=== PATIENT | male | born 1990 | race Caucasian/White ===

== ENCOUNTER 2018-12-27 19:32 | Emergency (ER) | payer OTHER ==
[2018-12-27 20:46] LABS: Absolute Lymphocytes (CBC) 1.2 K/uL (0.7-4.9); Absolute Monocytes 0.6 K/uL (0.1-1.3); Absolute Neutrophil 5.6 K/uL (1.8-8.0); Basophils % 0.5 % (0-1.3); Eosinophils % 0.3 % (0-4.4); Hematocrit 43.5 % (39.6-49.0); Lymphocytes % 16.3 % (15.3-44.8); MPV 7.9 fL (7.6-11.3); Monocytes % 7.6 % (3.3-12.3); RBC Red Blood Cell Count 4.76 M/uL (4.33-5.43)
--- NOTE | 2018-12-27 21:06 | RAD REPORT ---
EXAM DESCRIPTION: US - Scrotum Testicles - 12/27/2018 8:28 pm CLINICAL HISTORY: Testicular pain COMPARISON: None. FINDINGS: Testicles are homogeneous with normal Doppler blood flow pattern. No focal mass or testicu lar abnormality seen. Each epididymis is normal in appearance. There is a 6 millimeter right epididym al cyst as an incidental finding. No suspicious extra testicular abnormality. IMPRESSION: Scrotal ultrasound shows no significant or suspicious finding.
[2018-12-27 21:12] LABS: Albumin 4.5 g/dL (3.4-5.0); Bilirubin Direct 0.2 mg/dL (0-0.2); Bilirubin Total 0.6 mg/dL (0.2-1.0); Potassium 3.8 mmol/L (3.5-5.1); Protein, Total 8.2 g/dL (6.4-8.2)
--- NOTE | 2018-12-27 21:54 | ER ---
Nurse's Notes [facility] Name: Pavan Seth Age: 28 yrs Sex: Male : 1990 Arrival Date: 12/27/2018 Time: 19:36 Bed 5 Private MD: Diagnosis: Testicular Pain Presentation: 12/27 19:57 Presenting complaint: Patient states: Sudden onset of testicular pain to left but is lp1 now in the right at 1845; Pain when walking, patient states some swelling. Transition of care: patient was not received from another setting of care. Onset of symptoms was December 27, 2018 at 18:45. Risk Assessment: Do you want to hurt yourself or someone else? Patient reports no desire to harm self or others. Initial Sepsis Screen: Does the patient meet any 2 criteria? No. Patient's initial sepsis screen is negative. Does the patient have a suspected source of infection? No. Patient's initial sepsis screen is negative. Care prior to arrival: None. 19:57 Method Of Arrival: Ambulatory lp1 19:57 Acuity: WADE 3 lp1 Historical: - Allergies: 19:59 No Known Allergies; lp1 - Home Meds: 19:59 None [Active]; lp1 - PMHx: 19:59 None; lp1 - PSHx: 19:59 None; lp1 - Immunization history:: Adult Immunizations up to date. - Social history:: Smoking status: Patient/guardian denies using tobacco. - Ebola Screening: : No symptoms or risks identified at this time. Screenin:45 Abuse screen: Denies threats or abuse. Nutritional screening: No deficits noted. jd3 Tuberculosis screening: No symptoms or risk factors identified. Fall Risk Ambulatory Aid- None/Bed Rest/Nurse Assist (0 pts). Gait- Normal/Bed Rest/Wheelchair (0 pts) Mental Status- Oriented to own ability (0 pts). Total Aranda Fall Scale indicates No Risk (0-24 pts). Assessment: 20:39 General: Appears in no apparent distress. uncomfortable, Behavior is cooperative, jd3 appropriate for age, anxious. Pain: Complains of pain in groin Pain currently is 2 out of 10 on a pain scale. Quality of pain is described as sharp. Neuro: Level of Consciousness is awake, alert, obeys commands, Oriented to person, place, time, situation, Appropriate for age. Cardiovascular: Denies chest pain, Capillary refill < 3 seconds Patient's skin is warm and dry. Respiratory: Airway is patent Respiratory effort is even, unlabored, Respiratory pattern is regular, symmetrical, Denies shortness of breath. GI: Abdomen is flat, non-distended, Patient currently denies abdominal pain, nausea, vomiting. : Denies burning with urination, inability to void. EENT: No signs and/or symptoms were reported regarding the EENT system. Derm: Skin is intact, Skin is dry, Skin is normal, Skin temperature is warm. Musculoskeletal: Circulation, motion, and sensation intact. Range of motion: intact in all extremities. 21:18 Reassessment: Patient appears in no apparent distress at this time. No changes from jd3 previously documented assessment. Patient and/or family updated on plan of care and expected duration. Pain level reassessed. Patient is alert, oriented x 3, equal unlabored respirations, skin warm/dry/pink. 22:03 Reassessment: Patient appears in no apparent distress at this time. Patient and/or jd3 family updated on plan of care and expected duration. Pain level reassessed. Patient is alert, oriented x 3, equal unlabored respirations, skin warm/dry/pink. Patient states feeling better. Vital Signs: 19:59 BP 138 / 95; Pulse 122; Resp 18; Temp 98(O); Pulse Ox 97% on R/A; Weight 61.23 kg; lp1 Height 5 ft. 11 in. (180.34 cm); Pain 8/10; 22:03 BP 127 / 87; Pulse 98; Resp 16 S; Pulse Ox 100% on R/A; jd3 19:59 Body Mass Index 18.83 (61.23 kg, 180.34 cm) lp1 ED Course: 19:36 Patient arrived in ED. ss4 19:59 Triage completed. lp1 19:59 Arm band placed on right wrist. lp1 20:09 Raoul Campuzano PA is PHCP. jr8 20:09 Kyaw Casillas MD is Attending Physician. jr8 20:16 Gene Alberts RN is Primary Nurse. jd3 20:28 US Scrotum Testicles In Process Unspecified. EDMS 20:28 Ultrasound completed. Patient tolerated well. cy 20:39 Inserted saline lock: 20 gauge in right antecubital area, using aseptic technique. jd3 Blood collected. 20:45 Patient has correct armband on for positive identification. Placed in gown. Bed in low jd3 position. Call light in reach. Side rails up X 1. Adult w/ patient. 22:04 No provider procedures requiring assistance completed. IV discontinued, intact, jd3 bleeding controlled, No redness/swelling at site. Pressure dressing applied. Administered Medications: No medications were administered Outcome: 21:53 Discharge ordered by . chong 22:04 Discharged to home ambulatory, with family. jd3 22:04 Condition: stable 22:04 Discharge instructions given to patient, family, Instructed on discharge instructions, follow up and referral plans. Demonstrated understanding of instructions, follow-up care. 22:05 Patient left the ED. jd3 Signatures: Dispatcher [employer] EDCorinne Zheng RN RN lp1 Raoul Campuzano PA PA jr8 Gene Alberts RN RN jd3 Xander Griffin Stephanie 4 Corrections: (The following items were deleted from the chart) 21:18 20:39 Pain: Complains of pain in groin Quality of pain is described as sharp, jd3 jd3
--- NOTE | 2018-12-27 21:54 | EDPHYS ---
Physician Documentation [facility] Name: Pavan Seth Age: 28 yrs Sex: Male : 1990 Arrival Date: 12/27/2018 Time: 19:36 Bed 5 Private MD: ED Physician Kyaw Casillas HPI: 12/27 21:17 This 28 yrs old Male presents to ER via Ambulatory with complaints of jr8 Testicular Pain. 21:17 The patient presents with scrotal pain, of both sides, tenderness, that is moderate. jr8 Onset: The symptoms/episode began/occurred acutely, today. Modifying factors: The symptoms are alleviated by nothing, the symptoms are aggravated by nothing. Associated signs and symptoms: The patient has no apparent associated signs or symptoms. Severity of symptoms: At their worst the symptoms were moderate, in the emergency department the symptoms have improved, markedly. The patient has not experienced similar symptoms in the past. The patient has not recently seen a physician. Patient stated that he was standing up talking to his girlfriend when he felt a twisting motion to his testicles. Stated that the pain became so severe he had to sit down. Started to relieve after a few minutes but pain continued to come and go. Came to ED at that time for further evaluation . Historical: - Allergies: 19:59 No Known Allergies; lp1 - Home Meds: 19:59 None [Active]; lp1 - PMHx: 19:59 None; lp1 - PSHx: 19:59 None; lp1 - Immunization history:: Adult Immunizations up to date. - Social history:: Smoking status: Patient/guardian denies using tobacco. - Ebola Screening: : No symptoms or risks identified at this time. ROS: 21:17 Eyes: Negative for injury, pain, redness, and discharge, ENT: Negative for injury, jr8 pain, and discharge, Neck: Negative for injury, pain, and swelling, Cardiovascular: Negative for chest pain, palpitations, and edema, Respiratory: Negative for shortness of breath, cough, wheezing, and pleuritic chest pain, Abdomen/GI: Negative for abdominal pain, nausea, vomiting, diarrhea, and constipation, Back: Negative for injury and pain, MS/Extremity: Negative for injury and deformity, Skin: Negative for injury, rash, and discoloration, Neuro: Negative for headache, weakness, numbness, tingling, and seizure. 21:17 : Positive for testicular pain Exam: 21:17 Eyes: Pupils equal round and reactive to light, extra-ocular motions intact. Lids and jr8 lashes normal. Conjunctiva and sclera are non-icteric and not injected. Cornea within normal limits. Periorbital areas with no swelling, redness, or edema. ENT: Nares patent. No nasal discharge, no septal abnormalities noted. Tympanic membranes are normal and external auditory canals are clear. Oropharynx with no redness, swelling, or masses, exudates, or evidence of obstruction, uvula midline. Mucous membranes moist. Neck: Trachea midline, no thyromegaly or masses palpated, and no cervical lymphadenopathy. Supple, full range of motion without nuchal rigidity, or vertebral point tenderness. No Meningismus. Cardiovascular: Regular rate and rhythm with a normal S1 and S2. No gallops, murmurs, or rubs. Normal PMI, no JVD. No pulse deficits. Respiratory: Lungs have equal breath sounds bilaterally, clear to auscultation and percussion. No rales, rhonchi or wheezes noted. No increased work of breathing, no retractions or nasal flaring. Abdomen/GI: Soft, non-tender, with normal bowel sounds. No distension or tympany. No guarding or rebound. No evidence of tenderness throughout. Back: No spinal tenderness. No costovertebral tenderness. Full range of motion. Skin: Warm, dry with normal turgor. Normal color with no rashes, no lesions, and no evidence of cellulitis. MS/ Extremity: Pulses equal, no cyanosis. Neurovascular intact. Full, normal range of motion. Neuro: Awake and alert, GCS 15, oriented to person, place, time, and situation. Cranial nerves II-XII grossly intact. Motor strength 5/5 in all extremities. Sensory grossly intact. Cerebellar exam normal. Normal gait. 21:17 : Male external genitalia: Circumcision noted. swelling: is not appreciated, tenderness, of the left testicle and right testicle is noted, that is mild, No external trauma, bruising, swelling, or erythema noted . Vital Signs: 19:59 BP 138 / 95; Pulse 122; Resp 18; Temp 98(O); Pulse Ox 97% on R/A; Weight 61.23 kg; lp1 Height 5 ft. 11 in. (180.34 cm); Pain 8/10; 22:03 BP 127 / 87; Pulse 98; Resp 16 S; Pulse Ox 100% on R/A; jd3 19:59 Body Mass Index 18.83 (61.23 kg, 180.34 cm) lp1 MDM: 20:09 Patient medically screened. jr8 21:51 Data reviewed: vital signs, nurses notes, lab test result(s), radiologic studies, jr8 ultrasound. Data interpreted: Pulse oximetry: on room air is 97 %. Interpretation: normal. Counseling: I had a detailed discussion with the patient and/or guardian regarding: the historical points, exam findings, and any diagnostic results supporting the discharge/admit diagnosis, lab results, radiology results, the need for outpatient follow up, a family practitioner, to return to the emergency department if symptoms worsen or persist or if there are any questions or concerns that arise at home. ED course: Patients pain resolved. No acute abnormality on labs or US. Will d/c home with return precautions and no strenuous activity for next 48 hours . 12/27 20:24 Order name: Basic Metabolic Panel; Complete Time: 21:34 jr8 12/27 20:24 Order name: CBC with Diff; Complete Time: 21:34 8 12/27 20:04 Order name: US Scrotum Testicles; Complete Time: 21:34 [facility] 12/27 20:24 Order name: Creatinine for Radiology; Complete Time: 21:34 jr8 12/27 20:24 Order name: Hepatic Function; Complete Time: 21:34 8 12/27 20:24 Order name: Lipase; Complete Time: 21:34 8 12/27 20:24 Order name: IV Saline Lock; Complete Time: 20:38 jr8 12/27 20:24 Order name: Labs collected and sent; Complete Time: 20:38 jr8 Administered Medications: No medications were administered Disposition: 12/27/18 21:53 Discharged to Home. Impression: Testicular Pain . - Condition is Stable. - Discharge Instructions: Testicular Torsion. - Medication Reconciliation Form, Thank You Letter, Antibiotic Education, Prescription Opioid Use form. - Follow up: Private Physician; When: 2 - 3 days; Reason: Recheck today's complaints, Continuance of care, Re-evaluation by your physician. - Problem is new. - Symptoms have improved. Signatures: Dispatcher [employer] EDCorinne Zheng RN RN lp1 Raoul Campuzano PA PA jr8 Gene Alberts RN RN jd3 Corrections: (The following items were deleted from the chart) 22:05 21:53 12/27/2018 21:53 Discharged to Home. Impression: Testicular Pain . Condition is jd3 Stable. Forms are Medication Reconciliation Form, Thank You Letter, Antibiotic Education, Prescription Opioid Use. Follow up: Private Physician; When: 2 - 3 days; Reason: Recheck today's complaints, Continuance of care, Re-evaluation by your physician. Problem is new. Symptoms have improved. jr8
== END 2018-12-27 22:05 | disposition home or self-care (01) ==
LOC: ER 19:32
DX: N50.812 Left testicular pain (principal); N50.811 Right testicular pain
CPT/HCPCS: 36415; 76870; 80048; 80076; 83690; 85025; 99283

== ENCOUNTER 2019-01-05 09:43 | Emergency (ER) | payer OTHER ==
--- NOTE | 2019-01-05 11:42 | RAD REPORT ---
EXAM DESCRIPTION: RAD - Foot Left 3 View - 01/05/2019 11:31 am CLINICAL HISTORY: Left foot pain, trauma fourth toe COMPARISON: None. FINDINGS: No fracture, dislocation or periosteal reaction. No acute or destructive bony process. No air or foreign body in the soft tissues. IMPRESSION: Negative left foot examination.
--- NOTE | 2019-01-05 11:46 | EDPHYS ---
Physician Documentation [facility] Name: Pavan Seth Age: 28 yrs Sex: Male : 1990 Arrival Date: 01/05/2019 Time: 09:44 Bed 12 Private MD: ED Physician Andrea Mayo HPI: 01/05 10:21 This 28 yrs old Male presents to ER via Ambulatory with complaints of Toe kb Injury. 10:21 The patient presents with a contusion, an injury, pain, that is acute, swelling, kb tenderness. The complaints affect the left fourth toe. Context: The problem was sustained at home, resulted from the patient kicking, furniture, the patient can fully bear weight, the patient is able to ambulate. Onset: The symptoms/episode began/occurred yesterday. Modifying factors: The symptoms are alleviated by nothing, the symptoms are aggravated by weight bearing. Associated signs and symptoms: Pertinent positives: swelling, Pertinent negatives: calf tenderness, fever, nausea, numbness, rash, tingling, vomiting, warmth, weakness. Severity of symptoms: At their worst the symptoms were moderate, in the emergency department the symptoms are unchanged. The patient has not experienced similar symptoms in the past. The patient has not recently seen a physician. Historical: - Allergies: 10:02 No Known Allergies; la1 - PMHx: 10:02 None; la1 - Immunization history:: Adult Immunizations up to date. - Social history:: Smoking status: Patient/guardian denies using tobacco. - Ebola Screening: : No symptoms or risks identified at this time. ROS: 10:20 Constitutional: Negative for fever, chills, and weight loss, Cardiovascular: Negative kb for chest pain, palpitations, and edema, Respiratory: Negative for shortness of breath, cough, wheezing, and pleuritic chest pain, Abdomen/GI: Negative for abdominal pain, nausea, vomiting, diarrhea, and constipation, Back: Negative for injury and pain, : Negative for injury, bleeding, discharge, and swelling, Neuro: Negative for headache, weakness, numbness, tingling, and seizure. 10:20 MS/extremity: Positive for injury or acute deformity, contusion, ecchymosis, pain, swelling, tenderness, of the left fourth toe. Exam: 09:54 Constitutional: This is a well developed, well nourished patient who is awake, alert, kb and in no acute distress. Head/Face: Normocephalic, atraumatic. Neck: Trachea midline, no thyromegaly or masses palpated, and no cervical lymphadenopathy. Supple, full range of motion without nuchal rigidity, or vertebral point tenderness. No Meningismus. Chest/axilla: Normal chest wall appearance and motion. Nontender with no deformity. No lesions are appreciated. Cardiovascular: Regular rate and rhythm with a normal S1 and S2. No gallops, murmurs, or rubs. Normal PMI, no JVD. No pulse deficits. Respiratory: Lungs have equal breath sounds bilaterally, clear to auscultation and percussion. No rales, rhonchi or wheezes noted. No increased work of breathing, no retractions or nasal flaring. Abdomen/GI: Soft, non-tender, with normal bowel sounds. No distension or tympany. No guarding or rebound. No evidence of tenderness throughout. Neuro: Awake and alert, GCS 15, oriented to person, place, time, and situation. Cranial nerves II-XII grossly intact. Motor strength 5/5 in all extremities. Sensory grossly intact. Cerebellar exam normal. Normal gait. 09:54 Musculoskeletal/extremity: Extremities: grossly normal except: noted in the left fourth toe: contusion, ecchymosis, pain, ROM: limited active range of motion due to pain, in the left foot, Circulation is intact in all extremities. Sensation intact. Vital Signs: 10:02 BP 144 / 91; Pulse 79; Resp 18; Temp 98.0; Pulse Ox 98% on R/A; Weight 63.5 kg; Height la1 5 ft. 11 in. (180.34 cm); 10:02 Body Mass Index 19.53 (63.50 kg, 180.34 cm) la1 MDM: 09:53 Patient medically screened. kb 10:20 Data reviewed: vital signs, nurses notes. Data interpreted: Pulse oximetry: on room air kb is 98 %. Interpretation: normal. 11:44 Counseling: I had a detailed discussion with the patient and/or guardian regarding: the kb historical points, exam findings, and any diagnostic results supporting the discharge/admit diagnosis, radiology results, the need for outpatient follow up, a family practitioner, to return to the emergency department if symptoms worsen or persist or if there are any questions or concerns that arise at home. 01/05 09:54 Order name: Foot Left 3 View XRAY; Complete Time: 11:43 kb Administered Medications: No medications were administered Disposition: 01/05/19 11:45 Discharged to Home. Impression: Contusion of left lesser toe(s) without damage to nail. - Condition is Stable. - Discharge Instructions: Foot Contusion, [id number]. - Prescriptions for Bactrim DS 800- 160 mg Oral Tablet - take 1 tablet by ORAL route every 12 hours for 7 days; 14 tablet. - Medication Reconciliation Form, Thank You Letter, Antibiotic Education, Prescription Opioid Use form. - Follow up: Emergency Department; When: As needed; Reason: Worsening of condition. Follow up: Private Physician; When: 2 - 3 days; Reason: Recheck today's complaints, Continuance of care, Re-evaluation by your physician. Addendum: 01/07/2019 07:35 Co-signature as Attending Physician, Andrea Mayo MD I agree with the assessment and c dee plan of care. Signatures: Dispatcher [employer] EDPatience Redman, TRANSCRIPT CLERK-C TRANSCRIPT CLERK-CkAndrea Draper MD MD cha Attema, Lee RN RN la1 Lenora Rutherford RN RN hb Corrections: (The following items were deleted from the chart) 01/05 10:20 09:54 Musculoskeletal/extremity: Extremities: grossly normal except: noted in the Left kb fourth toenail: contusion, ecchymosis, pain, ROM: limited active range of motion due to pain, in the left foot, Circulation is intact in all extremities. Sensation intact. kb 12:02 11:45 01/05/2019 11:45 Discharged to Home. Impression: Contusion of left lesser toe(s) hb without damage to nail. Condition is Stable. Forms are Medication Reconciliation Form, Thank You Letter, Antibiotic Education, Prescription Opioid Use. Follow up: Emergency Department; When: As needed; Reason: Worsening of condition. Follow up: Private Physician; When: 2 - 3 days; Reason: Recheck today's complaints, Continuance of care, Re-evaluation by your physician. kb
--- NOTE | 2019-01-05 11:46 | ER ---
Nurse's Notes [facility] Name: Pavan Seth Age: 28 yrs Sex: Male : 1990 Arrival Date: 01/05/2019 Time: 09:44 Bed 12 Private MD: Diagnosis: Contusion of left lesser toe(s) without damage to nail Presentation: 01/05 10:02 Presenting complaint: Patient states: Stubbed Left forth toe on dresser yesterday. la1 Transition of care: patient was not received from another setting of care. Onset of symptoms was January 05, 2019. Risk Assessment: Do you want to hurt yourself or someone else? Patient reports no desire to harm self or others. Initial Sepsis Screen: Does the patient meet any 2 criteria? No. Patient's initial sepsis screen is negative. Does the patient have a suspected source of infection? No. Patient's initial sepsis screen is negative. Care prior to arrival: None. 10:02 Method Of Arrival: Ambulatory la1 10:02 Acuity: WADE 4 la1 Historical: - Allergies: 10:02 No Known Allergies; la1 - PMHx: 10:02 None; la1 - Immunization history:: Adult Immunizations up to date. - Social history:: Smoking status: Patient/guardian denies using tobacco. - Ebola Screening: : No symptoms or risks identified at this time. Screenin:07 Abuse screen: Denies threats or abuse. Denies injuries from another. Nutritional hb screening: No deficits noted. Tuberculosis screening: No symptoms or risk factors identified. Fall Risk None identified. Assessment: 11:00 General: Appears in no apparent distress. Behavior is calm, cooperative. Pain: Pain hb currently is 2 out of 10 on a pain scale. Neuro: Level of Consciousness is awake, alert, obeys commands, Oriented to person, place, time, situation. Cardiovascular: Capillary refill < 3 seconds Patient's skin is warm and dry. Respiratory: Airway is patent Respiratory effort is even, unlabored, Respiratory pattern is regular, symmetrical. GI: No signs and/or symptoms were reported involving the gastrointestinal system. : No signs and/or symptoms were reported regarding the genitourinary system. EENT: No signs and/or symptoms were reported regarding the EENT system. Derm: Skin is intact, is healthy with good turgor. Musculoskeletal: Reports left 4th toe pain. 11:45 Reassessment: Patient appears in no apparent distress at this time. Patient and/or hb family updated on plan of care and expected duration. Pain level reassessed. Patient is alert, oriented x 3, equal unlabored respirations, skin warm/dry/pink. Vital Signs: 10:02 BP 144 / 91; Pulse 79; Resp 18; Temp 98.0; Pulse Ox 98% on R/A; Weight 63.5 kg; Height la1 5 ft. 11 in. (180.34 cm); 10:02 Body Mass Index 19.53 (63.50 kg, 180.34 cm) la1 ED Course: 09:44 Patient arrived in ED. as 09:53 Patience Puga FNP-C is [facility]. kb 09:53 Andrea Mayo MD is Attending Physician. kb 10:02 Triage completed. la1 10:03 Arm band placed on left wrist. la1 11:07 Patient has correct armband on for positive identification. Call light in reach. hb 11:28 X-ray completed. Portable x-ray completed in exam room. Patient tolerated procedure la2 well. 11:31 Foot Left 3 View XRAY In Process Unspecified. EDMS 11:45 No provider procedures requiring assistance completed. Patient did not have IV access hb during this emergency room visit. Administered Medications: No medications were administered Outcome: 11:45 Discharge ordered by MD. kb 11:45 Discharged to home ambulatory, with significant other. hb 11:45 Condition: stable 11:45 Discharge instructions given to patient, Instructed on discharge instructions, follow up and referral plans. medication usage, Demonstrated understanding of instructions, follow-up care, medications, Prescriptions given X 1. 12:02 Patient left the ED. hb Signatures: Dispatcher [employer] EDMS Patience Puga FNP-C FNP-Ckb Martinez, Amelia as Attema, Lee, RN RN la1 Lenora Rutherford RN RN Kathy Hoffmann la2
== END 2019-01-05 12:02 | disposition home or self-care (01) ==
LOC: ER 09:43
DX: S90.122A Contusion of left lesser toe(s) without damage to nail, initial encounter (principal); W22.03XA Walked into furniture, initial encounter; Y93.01 Activity, walking, marching and hiking; Y92.009 Unspecified place in unspecified non-institutional (private) residence as the place of occurrence of the external cause
CPT/HCPCS: 99283

== ENCOUNTER 2022-07-18 03:22 | Emergency (ER) | payer OTHER ==
[2022-07-18] MEDS ORDERED: ONDANSETRON 4 MG (ODT) TAB ONE (03:56)
[2022-07-18] MEDS ORDERED: DICYCLOMINE HCL 10 MG CAP ONE (03:56)
[2022-07-18] MEDS ORDERED: FAMOTIDINE 20 MG TAB ONE (03:56)
[2022-07-18] MEDS ORDERED: PROMETHAZINE INJ 25 MG/ML AMP ONE (04:57)
--- NOTE | 2022-07-18 05:44 | ER ---
Nurse's Notes [facility] Name: Pavan Seth Age: 31 yrs Sex: Male : 1990 Arrival Date: 07/18/2022 Time: 03:27 Bed 5 Private MD: Diagnosis: Nausea with vomiting, unspecified;Abdominal pain, Generalized Presentation: 07/18 03:42 Chief complaint: Patient states: I have been vomiting since 8pm yesterteday. It started jb4 with our daughter who we took to an urgent care this morning for vomiting. Now I and my are having the same symptoms. Coronavirus screen: At this time, the client does not indicate any symptoms associated with coronavirus-19. Ebola Screen: No symptoms or risks identified at this time. Initial Sepsis Screen: Does the patient meet any 2 criteria? HR > 90 bpm. Yes Does the patient have a suspected source of infection? No. Patient's initial sepsis screen is negative. Risk Assessment: Do you want to hurt yourself or someone else? Patient reports no desire to harm self or others. Onset of symptoms was July 18, 2022. Transition of care: patient was not received from another setting of care. 03:42 Method Of Arrival: Ambulatory jb4 03:42 Acuity: WADE 4 jb4 Historical: - Allergies: 03:44 No Known Allergies; jb4 - Home Meds: 03:44 None [Active]; jb4 - PMHx: 03:44 None; jb4 - PSHx: 03:44 None; jb4 - Immunization history:: Adult Immunizations up to date. - Social history:: Smoking status: Patient denies any tobacco usage or history of. Screenin:49 Abuse screen: Denies threats or abuse. Nutritional screening: No deficits noted. jb4 Tuberculosis screening: No symptoms or risk factors identified. Fall Risk None identified. Assessment: 03:48 General: Appears in no apparent distress. uncomfortable, Behavior is calm, cooperative, jb4 appropriate for age. Pain: Complains of pain in abdomen Pain does not radiate. Pain currently is 6 out of 10 on a pain scale. Quality of pain is described as crampy. Neuro: Level of Consciousness is awake, alert, obeys commands, Oriented to person, place, time, situation. Cardiovascular: Patient's skin is warm and dry. Respiratory: Airway is patent Respiratory effort is even, unlabored, Respiratory pattern is regular, symmetrical. GI: Abdomen is flat, non-distended, Abd is soft X 4 quads Abdomen is tender to palpation X 4 quads. Reports lower abdominal pain, upper abdominal pain, cramping, nausea, vomiting. : No signs and/or symptoms were reported regarding the genitourinary system. EENT: No signs and/or symptoms were reported regarding the EENT system. Derm: Skin is intact, Skin is pink, warm \T\ dry. Musculoskeletal: Circulation, motion, and sensation intact. Range of motion: intact in all extremities. 05:03 Reassessment: No changes from previously documented assessment. tw5 05:54 Reassessment: Patient states feeling better. Patient states symptoms have improved. tw5 Vital Signs: 03:42 BP 133 / 88; Pulse 118; Resp 18; Temp 97.2(TE); Pulse Ox 100% on R/A; Weight 63.5 kg jb4 (R); Height 5 ft. 11 in. (180.34 cm) (R); Pain 6/10; 03:59 BP 143 / 94; Pulse 109; Resp 18; Pulse Ox 100% on R/A; tw5 05:03 Pulse 108; Resp 18; Pulse Ox 100% on R/A; tw5 05:54 BP 128 / 78; Pulse 100; Resp 18; Pulse Ox 100% on R/A; tw5 03:42 Body Mass Index 19.52 (63.50 kg, 180.34 cm) jb4 ED Course: 03:27 Patient arrived in ED. ag3 03:33 Elian Rodriguez DO is Attending Physician. ms3 03:38 Trena Lance is Primary Nurse. tw5 03:44 Triage completed. jb4 03:44 Arm band placed on right wrist. jb4 05:43 Shantanu Snow DO is Referral Physician. ms3 05:54 Patient has correct armband on for positive identification. tw5 05:54 No provider procedures requiring assistance completed. Patient did not have IV access tw5 during this emergency room visit. Administered Medications: 03:59 Drug: Zofran (Ondansetron) 4 mg Route: PO; tw5 05:02 Follow up: Response: No adverse reaction tw5 04:01 Drug: Bentyl (dicyclomine) 20 mg Route: PO; tw5 05:02 Follow up: Response: No adverse reaction tw5 04:01 Drug: Pepcid (famotidine) 20 mg Route: PO; tw5 05:02 Follow up: Response: No adverse reaction tw5 04:55 CANCELLED (Physician Discretion): Phenergan (promethazine) 12.5 mg IVP once ms3 05:01 Drug: Phenergan (promethazine) 12.5 mg Route: IM; Site: left gluteus; tw5 Medication: 05:03 VIS not applicable for this client. tw5 Outcome: 05:43 Discharge ordered by MD. ms3 05:54 Discharged to home ambulatory. tw5 05:54 Condition: improved 05:54 Discharge instructions given to patient, Instructed on discharge instructions, follow up and referral plans. Demonstrated understanding of instructions, follow-up care, medications, Prescriptions given X 2. 05:55 Patient left the ED. tw5 Signatures: Francois Villeda RN RN jb4 Vandana Mclain ag3 Elian Rodriguez DO DO ms3 Trena Lance tw5 Corrections: (The following items were deleted from the chart) 03:57 03:42 BP 133 / 88; Pulse 118bpm; Resp 18bpm; Pulse Ox 100% RA; 63.5 kg Reported; Height jb4 5 ft. 11 in. Reported; BMI: 19.5; Pain 6/10; jb4
--- NOTE | 2022-07-18 05:44 | EDPHYS ---
Physician Documentation [facility] Name: Pavan Seth Age: 31 yrs Sex: Male : 1990 Arrival Date: 07/18/2022 Time: 03:27 Bed 5 Private MD: ED Physician Elian Rodriguez HPI: 07/18 04:03 This 31 yrs old Male presents to ER via Ambulatory with complaints of Abdominal Pain, ms3 Vomiting. 04:03 31-year-old male with no past medical history presents for nausea, vomiting, abdominal ms3 pain that began at 8 PM. Patient states his pain is a 7/10 and cramping. Patient states he has vomited 4 times. Patient denies alleviating or inciting factors. Of note patient's daughter and have similar symptoms. Patient denies fevers, diarrhea. Historical: - Allergies: 03:44 No Known Allergies; jb4 - Home Meds: 03:44 None [Active]; jb4 - PMHx: 03:44 None; jb4 - PSHx: 03:44 None; jb4 - Immunization history:: Adult Immunizations up to date. - Social history:: Smoking status: Patient denies any tobacco usage or history of. ROS: 04:03 Constitutional: Negative for fever, and chills. ENT: Negative for injury, pain, and ms3 discharge, Neck: Negative for injury, pain, and swelling, Cardiovascular: Negative for chest pain, and palpitations. Respiratory: Negative for shortness of breath, cough, wheezing, and pleuritic chest pain. 04:03 MS/Extremity: Negative for injury and deformity, Skin: Negative for injury, rash, and discoloration. 04:03 Abdomen/GI: Positive for abdominal pain, nausea and vomiting. 04:03 All other systems are negative. Exam: 04:03 Constitutional: This is a well developed, well nourished patient who is awake, alert, ms3 and in no acute distress. Head/Face: Normocephalic, atraumatic. Neck: Trachea midline, no cervical lymphadenopathy. Supple, full range of motion without nuchal rigidity, or vertebral point tenderness. No Meningismus. Chest/axilla: Normal chest wall appearance and motion. Nontender with no deformity. Cardiovascular: Regular rate and rhythm with a normal S1 and S2. No gallops, murmurs, or rubs. Normal PMI, no JVD. No pulse deficits. Respiratory: Lungs have equal breath sounds bilaterally, clear to auscultation and percussion. No rales, rhonchi or wheezes noted. No increased work of breathing, no retractions or nasal flaring. 04:03 Skin: Warm, dry with normal turgor. Normal color with no rashes, no lesions, and no evidence of cellulitis. Psych: Awake, alert, with orientation to person, place and time. Behavior, mood, and affect are within normal limits. 04:03 Abdomen/GI: Inspection: abdomen appears normal, Bowel sounds: normal, Palpation: mild abdominal tenderness, in all quadrants. Vital Signs: 03:42 BP 133 / 88; Pulse 118; Resp 18; Temp 97.2(TE); Pulse Ox 100% on R/A; Weight 63.5 kg jb4 (R); Height 5 ft. 11 in. (180.34 cm) (R); Pain 6/10; 03:59 BP 143 / 94; Pulse 109; Resp 18; Pulse Ox 100% on R/A; tw5 05:03 Pulse 108; Resp 18; Pulse Ox 100% on R/A; tw5 05:54 BP 128 / 78; Pulse 100; Resp 18; Pulse Ox 100% on R/A; tw5 03:42 Body Mass Index 19.52 (63.50 kg, 180.34 cm) jb4 MDM: 03:43 Patient medically screened. ms3 04:03 Differential diagnosis: Nonspecific abd pain, gastritis, viral gastroenteritis. ms3 05:45 Data reviewed: vital signs, nurses notes, and as a result, I will discharge patient. ms3 Counseling: I had a detailed discussion with the patient and/or guardian regarding: the historical points, exam findings, and any diagnostic results supporting the discharge/admit diagnosis, the need for outpatient follow up, to return to the emergency department if symptoms worsen or persist or if there are any questions or concerns that arise at home. ED course: On reevaluation patient improved, in no apparent distress, nontoxic, ambulatory in emergency department, speaking full sentences, tolerating p.o. Patient to follow-up with his primary care physician in 2 to 3 days. Patient understands and agrees with plan. All questions were answered. Return precautions discussed include worsening symptoms, or any other concerns. Administered Medications: 03:59 Drug: Zofran (Ondansetron) 4 mg Route: PO; tw5 05:02 Follow up: Response: No adverse reaction tw5 04:01 Drug: Bentyl (dicyclomine) 20 mg Route: PO; tw5 05:02 Follow up: Response: No adverse reaction tw5 04:01 Drug: Pepcid (famotidine) 20 mg Route: PO; tw5 05:02 Follow up: Response: No adverse reaction tw 04:55 CANCELLED (Physician Discretion): Phenergan (promethazine) 12.5 mg IVP once ms3 05:01 Drug: Phenergan (promethazine) 12.5 mg Route: IM; Site: left gluteus; tw5 Disposition Summary: 07/18/22 05:43 Discharge Ordered Location: Home ms3 Condition: Stable ms3 Diagnosis - Nausea with vomiting, unspecified ms3 - Abdominal pain, Generalized ms3 Followup: ms3 - With: Shantanu Snow DO - When: 2 - 3 days - Reason: Recheck today's complaints Discharge Instructions: - Discharge Summary Sheet ms3 - Abdominal Pain, Adult ms3 - Nausea and Vomiting, Adult ms3 Forms: - Medication Reconciliation Form ms3 - Thank You Letter ms3 - Antibiotic Education ms3 - Prescription Opioid Use ms3 Prescriptions: - ondansetron 4 mg Oral tablet,disintegrating - take 1 tablet by ORAL route every 8 hours for 2 days; 15 tablet; Refills: 0, ms3 Product Selection Permitted - dicyclomine 10 mg Oral Capsule - take 1 capsule by ORAL route 4 times per day; 16 capsule; Refills: 0, Product ms3 Selection Permitted Signatures: Farncois Villeda, RN RN jb4 Elian Rodriguez DO DO ms3 Trena Lance tw5 Corrections: (The following items were deleted from the chart) 04:55 04:55 Phenergan (promethazine) 12.5 mg IVP once ordered. ms3 ms3
[2022-07-18 06:01] VITALS: TEMP 97.2; O2SAT 100
[2022-07-18 06:04] VITALS: BP 128/78
== END 2022-07-18 05:55 | disposition home or self-care (01) ==
LOC: ER 03:22
DX: R11.2 Nausea with vomiting, unspecified (principal); R10.84 Generalized abdominal pain
CPT/HCPCS: 96372; 99283; J2550; Q0162